=== PATIENT | female | born 1995 | race Caucasian/White ===

== ENCOUNTER 2017-02-10 12:42 | Emergency (ER) | payer MEDICAID ==
--- NOTE | 2017-02-10 12:44 | ED Physician Chart ---
Chief Complaint/HPI - Patient Information Date Seen:: 02/10/17 Time Seen:: 12:43 Chief Complaint:: cough History of Present Illness:: 21-year-old female, otherwise healthy, complains of acute, constant, moderate, nonproductive, worse at night, cough 1 week. Has associated acute, constant, worsening, nonradiating, moderate, worse with swallowing, 7 out of 10 at worst, sore throat 1 week. Denies fevers, shortness of breath, chest pain, palpitations, nausea, vomiting, diarrhea, dysuria. Historian:: Patient Review:: Nurse's Note Reviewed Review of Systems - Review of Systems Other: Complete system review otherwise unremarkable except as noted in history of present illness. Past Medical History - Past Medical History Past Medical History: No significant medical hx Family History: None Social History: Non Smoker, No Alcohol, No Drug Use Surgical History: None Psychiatricy History: None Medication: None Family Medical History - Family Member Mother History Unknown: Yes Ethnicity: Non- Physical Exam - Physical Examination Other:: INITIAL VITAL SIGNS: Reviewed by me GENERAL: Alert and interactive. No acute distress HEAD: Head is normocephalic and atraumatic EYES: EOMI. PERRL. No scleral icterus. No conjunctival injection ENT: Tonsils are +1 edematous with slight exudate. NECK: Supple. Bilateral cervical adenopathy greater on the left and right. Full range of motion RESPIRATORY: No tachypnea. Clear breath sounds bilaterally. No wheezing, rales, or rhonchi CV: Regular rate and rhythm. No murmurs, rubs, or gallops ABDOMEN: Soft, non-distended, non-tender. No guarding. No rebound. No masses. EXTREMITIES: No deformity. No cyanosis. No edema. SKIN: Warm and dry. No obvious rashes. NEUROLOGIC: Alert and oriented. Face is symmetric. Speech is normal. Moves all extremities equally. Motor and sensory distally intact. ED Septic Shock - . Is Septic Shock (SBP<90, OR Lactate>4 mmol\L) present?: No Reassessment (Disposition) - Reassessment Reassessment:: Patient has +1 edematous tonsils with slight exudate. Also cervical adenopathy. Lungs are clear to auscultation with postnasal drip. Patient does have acute pharyngitis. We'll give prescription for antibiotics, antitussive and analgesics. Follow-up primary one to 2 days. Return to ER precautions given. She understands and agrees with plan. Blood pressure was noted to be elevated over 120/80. There were no signs of hypertension. Discussed the findings with the patient and recommended that the patient follow up with the primary care physician regarding the elevated blood pressure. - Diagnosis Diagnosis:: Acute cough due to postnasal drip Acute pharyngitis, unspecified Elevated blood pressure without the diagnosis of hypertension - Aftercare/Follow up Instructions Aftercare/Follow-Up Instructions:: Counseled pt regarding lab results/diagnosis & need follow up, Refer to Discharge Instructions Medication Prescribed:: Azithromycin Tessalon Perles Ibuprofen - Patient Disposition Discharge/Transfer:: Home Time:: 12:57 Condition at Disposition:: Improved ED Discharge Plan - Patient Disposition Admit/Discharge/Transfer: PT DISCHARGED HOME Condition at Disposition: Improved Instructions: Viral and Bacterial Pharyngitis
[2017-02-10 13:23] VITALS: BP 135/80
== END 2017-02-10 13:22 | disposition home or self-care (01) ==
LOC: ER 12:42
DX: J02.9 Acute pharyngitis, unspecified (principal); R09.82 Postnasal drip; R03.0 Elevated blood-pressure reading, without diagnosis of hypertension
CPT/HCPCS: Z7502

== ENCOUNTER 2017-12-21 18:39 | Emergency (ER) | payer MEDICAID ==
--- NOTE | 2017-12-21 19:47 | ED Physician Chart ---
ED Chief Complaint/HPI - Patient Information Date Seen:: 12/21/17 Time Seen:: 19:30 Chief Complaint:: sore throat History of Present Illness:: location: throat quality: sore throat severity: mild, mod duration: 3 days context: spontaneous onset of sore throat and throat pain x 3 days. still present today. no fever in last 3 days. no vomiting. no rash. last sore throat one month ago. went away spontaneously. says she can see right tonsillar enlargement and has pain right side to came to ER for physician examination. no chest pain, no cough. mod factors: none assoc s/s: none hx from pt. Allergies:: Allergies Allergy/AdvReac Type Severity Reaction Status Date / Time No Known Allergies Allergy Verified 02/10/17 12:49 Vitals:: Vital Signs - 8 hr 12/21/17 19:05 Temp 99.3 F HR 95 RR 16 BP 128/68 O2 Sat % 99 Historian:: Patient Review:: Nurse's Note Reviewed ED Review of Systems - Review of Systems General/Constitutional: No fever, No chills, No weight loss, No weakness, No diaphoresis, No edema, No loss of appetite Skin: No skin lesions, No rash, No bruising Head: No headache, No light-headedness Eyes: No loss of vision, No pain, No diplopia ENT: No earache, No nasal drainage, Sore throat, No tinnitus Neck: No neck pain, No swelling, No thyromegaly, No stiffness, No mass noted Cardio Vascular: No chest pain, No palpitations, No PND, No orthopnea, No edema Pulmonary: No SOB, No cough, No sputum, No wheezing GI: No nausea, No vomiting, No diarrhea, No pain, No melena, No hematochezia, No constipation, No hematemesis G/U: No dysuria, No frequency, No hematuria Musculoskeletal: No bone or joint pain, No back pain, No muscle pain Endocrine: No polyuria, No polydipsia Psychiatric: No prior psych history, No depression, No anxiety, No suicidal ideation Hematopoietic: No bruising, No lymphadenopathy Allergic/Immuno: No urticaria, No angioedema Neurological: No syncope, No focal symptoms, No weakness, No paresthesia, No headache, No seizure, No dizziness, No confusion, No vertigo ED Past Medical History - Past Medical History Past Medical History: No significant medical hx Family History: None Social History: Non Smoker, No Alcohol, No Drug Use, Single Surgical History: None Psychiatricy History: None Medication: None Family Medical History - Family Member Mother History Unknown: Yes Ethnicity: Non- Living Status: Still Living ED Physical Exam - Physical Examination General/Constitutional: Awake, Well-developed, well-nourished, Alert, No distress, GCS 15, Non-toxic appearing, Ambulatory Head: Atraumatic Eyes: Lids, conjuctiva normal, PERRL, EOMI Skin: Nl inspection, Well hydrated, No lymphadenopathy (palpable lymph node right upper neck. ) ENMT: External ears, nose nl, Nasal exam nl, Lips, teeth, gums nl, Tonsils nl ( bilateral tonsillar enlargement right greater than left, no exudate, mild erythema. ) Neck: Nontender, Full ROM w/o pain (palpable lymph nodes, tender, right upper neck), No nuchal rigidity, No stridor Respiratory: Nl effort/Exclusion, Clear to Auscultation, No Wheeze/Rhonchi/Rales Cardio Vascular: RRR, No murmur, gallop, rubs, NL S1 S2 GI: No tenderness/rebounding/guarding, Normal BS's, Nondistended : No CVA tenderness Extremities: No tenderness or effusion, Full ROM, normal strength in all extremities, No edema Neuro/Psych: Alert/oriented Misc: Normal back, No paraspinal tenderness ED Assessment - Assessment General Assessment: pt in stable condition while in ER. afebrile. stable vital signs. ED Septic Shock - . Is Septic Shock (SBP<90, OR Lactate>4 mmol\L) present?: No - <6hrs of presentation: Vital Signs: Vital Signs - 8 hr 12/21/17 19:05 Temp 99.3 F HR 95 RR 16 BP 128/68 O2 Sat % 99 ED Reassessment (Disposition) - Reassessment Reassessment:: stable pt with pharyngitis with tonsillar enlargement and palpable lymph nodes will treat with antibiotics Reassessment Condition:: Unchanged - Diagnosis Diagnosis:: pharyngitis, strep like infection - Aftercare/Follow up Instructions Aftercare/Follow-Up Instructions:: Refer to Discharge Instructions Notes:: go to clinic for recheck tomorrow pt advised that for any acute worsening she should immediately go to the closest ER pt says she understands and will follow physician advice. Medication Prescribed:: pencilllin 500mg one po QID x 10 days - Patient Disposition Discharge/Transfer:: Home Condition at Disposition:: Stable, Unchanged
== END 2017-12-21 21:26 | disposition home or self-care (01) ==
LOC: ER 18:39
DX: J02.9 Acute pharyngitis, unspecified (principal)
CPT/HCPCS: 87070-90; 87081-90; Z7502

== ENCOUNTER 2019-03-01 17:09 | Emergency (ER) | payer MEDICAID ==
--- NOTE | 2019-03-01 18:00 | ED Physician Chart ---
ED Chief Complaint/HPI - Patient Information Date Seen:: 03/01/19 Time Seen:: 17:30 Chief Complaint:: miraine Allergies:: Allergies Allergy/AdvReac Type Severity Reaction Status Date / Time No Known Allergies Allergy Verified 11/20/18 15:11 Vitals:: Vital Signs - 8 hr 03/01/19 17:18 Temp 97 F HR 79 RR 16 BP 123/77 O2 Sat % 99 Historian:: Patient (off on several days r sided dizziness) Review:: Nurse's Note Reviewed ED Review of Systems - Review of Systems General/Constitutional: No fever Skin: No skin lesions Head: Headache Eyes: Acuity change ENT: Earache, No earache Neck: No neck pain Cardio Vascular: No chest pain Pulmonary: No SOB GI: Nausea, No vomiting Musculoskeletal: No bone or joint pain Hematopoietic: No bruising Neurological: No syncope ED Past Medical History - Past Medical History Past Medical History: Other (migraine) Family Medical History - Family Member Mother History Unknown: Yes Ethnicity: Non- Living Status: Still Living Hx Family Cancer: No Hx Family Congestive Heart Failure: No Hx Family Hypertension: No Hx Family Diabetes: No Hx Family Seizures: No Hx Family AIDS: No Hx Family HIV: No Hx Family COPD: No Hx Family Psychiatric Problems: No Hx Family Tuberculosis: No Father Ethnicity: Non- Living Status: Still Living Hx Family Hypertension: Yes ED Physical Exam - Physical Examination General/Constitutional: Awake, Well-developed, well-nourished, Alert, No distress, GCS 15, Non-toxic appearing, Ambulatory Head: Atraumatic Eyes: Lids, conjuctiva normal Skin: Nl inspection ENMT: External ears, nose nl Neck: Nontender, Full ROM w/o pain, No nuchal rigidity Respiratory: Nl effort/Exclusion Cardio Vascular: RRR Extremities: No tenderness or effusion Neuro/Psych: Alert/oriented, Judgement/insight normal, No focal deficits Misc: Normal back (smiling during exam) ED Assessment - Assessment General Assessment: cephalgia ED Septic Shock - . Is Septic Shock (SBP<90, OR Lactate>4 mmol\L) present?: No - <6hrs of presentation: Vital Signs: Vital Signs - 8 hr 03/01/19 17:18 Temp 97 F HR 79 RR 16 BP 123/77 O2 Sat % 99
[2019-03-01] MEDS ORDERED: Sodium Chloride 0.9% 1,000 ML IV ONE (19:31)
[2019-03-01] MEDS ORDERED: Metoclopramide 5 mg/mL 2mL Vial IVP STA (19:31)
[2019-03-01] MEDS ORDERED: Metoclopramide 5 mg/mL 2mL Vial ONE (19:37)
--- NOTE | 2019-03-02 08:36 | Diagnostic Imaging Report ---
CT scan of the brain without contrast History: Headache Total DLP equals 670 CTDI equals 38.8 Axial sections were obtained from the base of the skull to the vertex. There is a normal ventricular system size. No focal parenchymal lesions are seen. No evidence of any mass effect or shift of midline structures. No extra-axial masses or abnormal fluid collections. Impression: Negative examination
--- NOTE | 2019-03-02 08:42 | Diagnostic Imaging Report ---
CT scan sinuses HISTORY: Headache Total DLP equals 163 CTDI equals 9.7 Axial sections were obtained through the paranasal sinuses. Additional coronal and sagittal reformatted images are provided. There is normal aeration of the maxillary, ethmoid, frontal, and sphenoid sinuses. No abnormal intraluminal soft tissue densities, fluid levels, or bony alterations. The nasopharynx appears normal. Mild enlargement of the adenoids. IMPRESSION: 1. Normal examination of the paranasal sinuses 2. Mild adenoid enlargement
== END 2019-03-01 20:50 | disposition home or self-care (01) ==
LOC: ER 17:09
DX: G43.909 Migraine, unspecified, not intractable, without status migrainosus (principal)
CPT/HCPCS: 99284; 96374; 70450; 70486; 81025; J2765; J7030